=== PATIENT | male | born 1955 | race Caucasian/White ===

== ENCOUNTER 2018-03-11 11:50 | Day surgery (SDC) | payer OTHER ==
[~2018-03-11] VITALS: Ht 170.2 cm; Wt 74.6 kg
[2018-03-11] MEDS ORDERED: Ziac 2.5-6.251 EACH PO (12:24)
[2018-03-11] MEDS ORDERED: ESOM20 (12:24)
== END 2018-03-11 13:55 | disposition home or self-care (01) ==
LOC: ORSCSDS 11:50
PROVIDERS: Surgery
PROC: 0DJD8ZZ Inspection of Lower Intestinal Tract, Via Natural or Artificial Opening Endoscopic (ICD-10-PCS; principal; 2018-03-11 13:00)
DX: Z12.11 Encounter for screening for malignant neoplasm of colon (principal); I10 Essential (primary) hypertension; K21.9 Gastro-esophageal reflux disease without esophagitis; Z79.899 Other long term (current) drug therapy
CPT/HCPCS: J7120